=== PATIENT | male | born 1950 | race Caucasian/White ===

== ENCOUNTER 2018-08-26 05:18 | Day surgery (SDC) | payer MEDICARE ==
[~2018-08-26] VITALS: Ht 185.4 cm; Wt 96.8 kg
[~2018-08-26 05:18] MED LIST: ACET325T14 PO; DABI150C PO; DIPH25CA61 PO; DOCU-131 PO; ERTA1VIA IVPB; FLUC200P6 IVPB; GABA300C10 PO; INSU100I18 SQ-INSULIN; INSU100I28 SQ-INSULIN; METF10002 PO; METO25TA35 PO; OXYC1TAB7 PO; OXYC5CAP2 PO; TRAM-47 PO; ZOLP-413 PO; [UNRECOGNIZED DRUG - REMARK]
[2018-08-26] MEDS ORDERED: LACTATED RINGERS 1,000 ML IV SCH (06:01)
[2018-08-26 06:26] VITALS: BP 151/72
[2018-08-26] MEDS ORDERED: INSU100V13 SQ (06:41)
[2018-08-26] MEDS ORDERED: ACET-1600 PO (06:41)
[2018-08-26] MEDS ORDERED: INSU100C5 SQ-INSULIN (06:41)
[2018-08-26] MEDS ORDERED: LOSARTAN PO (06:41)
[2018-08-26] MEDS ORDERED: CHOL500045 PO (06:41)
[2018-08-26] MEDS ORDERED: AMLODIPINE PO (06:41)
[2018-08-26] MEDS ORDERED: IRON PO (06:41)
[2018-08-26] MEDS ORDERED: FENTANYL PF 100 MCG/2ML ONE ×4 (06:46→08:09)
[2018-08-26 06:54] LABS: ALBUMIN 3.3 g/dL (3.4-5.0); ANION GAP 7 mmol/L (5-15); CALCIUM 9.2 mg/dL (8.5-10.1); CHLORIDE 114 mmol/L (98-107)
[2018-08-26 07:00] LABS: ALANINE AMINOTRANSFERASE 19 U/L (12-78); ALKALINE PHOSPHATASE 79 U/L (45-117); BILIRUBIN,TOTAL 1.2 mg/dL (0.2-1.0); CREATININE 0.98 mg/dL (0.7-1.3); TOTAL PROTEIN 7.3 g/dL (6.4-8.2)
[2018-08-26] MEDS ORDERED: DEXAMETHASONE 4 MG/ML, 1ML ONE (07:00)
[2018-08-26] MEDS ORDERED: LIDOCAINE 2% 100MG/5ML SYRINGE ONE (07:00)
[2018-08-26] MEDS ORDERED: CEFAZOLIN 1,000 MG ONE (07:24)
[2018-08-26] MEDS ORDERED: ONDANSETRON 2MG/ML, 2ML ONE (07:24)
[2018-08-26] MEDS ORDERED: PROPOFOL 10 MG/ML, 20ML ONE (07:24)
[2018-08-26] MEDS ORDERED: ONDANSETRON 2MG/ML, 2ML IV PRN (07:30)
[2018-08-26] MEDS ORDERED: ONDANSETRON ODT 8 MG PO PRN (07:30)
[2018-08-26] MEDS ORDERED: OXYcodone 5 MG/5 ML ORAL.SOL UDC PO PRN (07:30)
[2018-08-26] MEDS ORDERED: ACETAMINOPHEN 325 MG TABLET PO PRN (07:30)
[2018-08-26] MEDS ORDERED: MEPERIDINE/PF 25MG/0.5ML IVPush PRN (07:30)
[2018-08-26] MEDS ORDERED: PROMETHAZINE 25 MG/ML, 1ML IV PRN (07:30)
[2018-08-26] MEDS ORDERED: HYDROmorphone 1 MG/ML, 1ML ONE ×2 (07:56→08:09)
[2018-08-26] MEDS ORDERED: OXYcodone 5 MG/5 ML ORAL.SOL UDC ONE ×2 (07:56→08:40)
[2018-08-26] MEDS: FENTANYL PF 100 MCG/2ML IV PRN ×3 (07:59→08:20)
[2018-08-26] MEDS: HYDROmorphone 2 MG/ML, 1ML IVPush PRN ×3 (08:04→08:21)
[2018-08-26] MEDS ORDERED: MEPERIDINE/PF 25MG/ML,1ML ONE (08:26)
[2018-08-26] MEDS ORDERED: OXYcodone 5 MG/5 ML ORAL.SOL UDC PO ONE (09:00)
[2018-08-26] MEDS ORDERED: KETOROLAC 30 MG/1 ML ONE (10:36)
== END 2018-08-26 11:30 | disposition home or self-care (01) ==
LOC: OUT 05:18
PROVIDERS: ATTEND Orthopaedic Surgery
DX: T84.54XA Infection and inflammatory reaction due to internal left knee prosthesis, initial encounter (principal); E11.9 Type 2 diabetes mellitus without complications; I10 Essential (primary) hypertension; Y83.8 Other surgical procedures as the cause of abnormal reaction of the patient, or of later complication, without mention of misadventure at the time of the procedure; Y92.89 Other specified places as the place of occurrence of the external cause; Z79.4 Long term (current) use of insulin; Z79.01 Long term (current) use of anticoagulants
CPT/HCPCS: 13160; 80053; 82962; 93005; J0690; J1100; J1170; J2175; J2405; J2704; J3010; J7120

== ENCOUNTER 2018-10-02 07:39 | Day surgery (SDC) | payer MEDICARE ==
[~2018-10-02] VITALS: Ht 185.4 cm; Wt 95.0 kg
[~2018-10-02 07:39] MED LIST changes: +ACET-1600 PO; +AMLODIPINE PO; +CHOL500045 PO; +INSU100C5 SQ-INSULIN; +INSU100V13 SQ; +IRON PO; +LOSARTAN PO
[2018-10-02 08:17] VITALS: BP 164/91
[2018-10-02] MEDS ORDERED: FENTANYL PF 250 MCG/5ML ONE ×2 (08:25→12:30)
[2018-10-02] MEDS ORDERED: MIDAZOLAM 1 MG/ML, 2ML ONE (08:25)
[2018-10-02] MEDS ORDERED: PROPOFOL 10 MG/ML, 20ML ONE ×2 (08:26→12:34)
[2018-10-02] MEDS ORDERED: CEFAZOLIN 1,000 MG ONE ×3 (08:27→12:34)
[2018-10-02] MEDS ORDERED: SODIUM CHLORIDE 0.9% PF 10ML ONE (08:27)
[2018-10-02 08:49] LABS: BASOPHILS # (AUTO) 0.05 x10^3/uL (0-0.1); BASOPHILS % (AUTO) 1 % (0-1); EOSINOPHILS # (AUTO) 0.47 x10^3/uL (0-0.4); EOSINOPHILS % (AUTO) 7 % (1-7); LYMPHOCYTES # (AUTO) 1.27 x10^3/uL (1-3.4); LYMPHOCYTES % (AUTO) 20 % (22-44); MD NO; MEAN CORPUSCULAR HEMOGLOBIN 26.9 pg (27.5-34.5); MEAN CORPUSCULAR HGB CONC 32.2 g/dL (33.2-36.2); MEAN CORPUSCULAR VOLUME 83.5 fL (81-97); MEAN PLATELET VOLUME 8.3 fL (7.4-10.4); MONOCYTES # (AUTO) 0.52 x10^3/uL (0.2-0.8); MONOCYTES % (AUTO) 8 % (2-9); NEUTROPHILS % (AUTO) 65 % (42-75); PLATELET COUNT 325 x10^3/uL (130-400); RED BLOOD COUNT 3.94 x10^6/uL (4.38-5.82); RED CELL DISTRIBUTION WIDTH 16.8 % (9.4-14.8)
[2018-10-02] MEDS ORDERED: hydrALAzine 20 MG/ML, 1ML IV PRN (09:00)
[2018-10-02] MEDS ORDERED: PROMETHAZINE 25 MG SUPP PR PRN (09:00)
[2018-10-02] MEDS ORDERED: MEPERIDINE/PF 25MG/0.5ML IVPush PRN (09:00)
[2018-10-02] MEDS ORDERED: ONDANSETRON 2MG/ML, 2ML IV PRN (09:00)
[2018-10-02] MEDS ORDERED: MORPHINE SULFATE 4 MG/ML, 1ML IVPush PRN (09:00)
[2018-10-02] MEDS ORDERED: ACETAMINOPHEN 325 MG TABLET PO PRN (09:00)
[2018-10-02] MEDS ORDERED: PROMETHAZINE 25 MG/ML, 1ML IM PRN ×2 (09:00)
[2018-10-02] MEDS ORDERED: PROMETHAZINE 25 MG/ML, 1ML IV PRN (09:00)
[2018-10-02] MEDS ORDERED: LABETALOL 5MG/ML, 20ML IV PRN (09:00)
[2018-10-02] MEDS ORDERED: ONDANSETRON ODT 8 MG PO PRN (09:00)
[2018-10-02] MEDS ORDERED: PROMETHAZINE 12.5 MG SUPP PR PRN (09:00)
[2018-10-02] MEDS ORDERED: FENTANYL PF 100 MCG/2ML ONE (09:49)
[2018-10-02] MEDS ORDERED: OXYcodone 5 MG/5 ML ORAL.SOL UDC ONE ×2 (09:49→10:03)
[2018-10-02] MEDS ORDERED: ACETAMINOPHEN 650 MG/20.3 ML UDC ONE (09:49)
[2018-10-02] MEDS: FENTANYL PF 100 MCG/2ML IV PRN ×2 (09:51→10:02)
[2018-10-02] MEDS: OXYcodone 5 MG/5 ML ORAL.SOL UDC PO PRN ×2 (09:53→10:04)
[2018-10-02] MEDS ORDERED: HYDROmorphone 2 MG/ML, 1ML ONE (10:11)
[2018-10-02] MEDS: HYDROmorphone 2 MG/ML, 1ML IVPush PRN ×4 (10:13→10:33)
[2018-10-02] MEDS ORDERED: MEPERIDINE/PF 25MG/ML,1ML ONE (10:36)
[2018-10-02] MEDS ORDERED: KETOROLAC 30 MG/1 ML ONE (10:39)
[2018-10-02] MEDS ORDERED: KETOROLAC 30 MG/1 ML IVPush ONE (11:00)
[2018-10-02] MEDS ORDERED: NEOSTIGMINE 1 MG/ML, 10ML ONE (12:34)
[2018-10-02] MEDS ORDERED: ROCURONIUM 10MG/ML,5ML ONE (12:34)
[2018-10-02] MEDS ORDERED: GLYCOPYRROLATE 0.2MG/1ML, 5ML ONE (12:34)
== END 2018-10-02 12:15 | disposition home or self-care (01) ==
LOC: OUT 07:39
PROVIDERS: ATTEND Orthopaedic Surgery
DX: T81.30XA Disruption of wound, unspecified, initial encounter (principal); E13.42 Other specified diabetes mellitus with diabetic polyneuropathy; E13.51 Other specified diabetes mellitus with diabetic peripheral angiopathy without gangrene; I10 Essential (primary) hypertension; I48.91 Unspecified atrial fibrillation; Z89.511 Acquired absence of right leg below knee; Z79.891 Long term (current) use of opiate analgesic; Z79.4 Long term (current) use of insulin; Z79.899 Other long term (current) drug therapy; Y83.8 Other surgical procedures as the cause of abnormal reaction of the patient, or of later complication, without mention of misadventure at the time of the procedure
CPT/HCPCS: 13160; 36415; 82962; 85025; 87070; 87075; 87077; 87186; 87205; J0690; J1170; J1885; J2250; J2704; J2710; J3010